=== PATIENT | male | born 1970 | race American Indian/Alaskan Native ===

== ENCOUNTER 2017-02-25 06:12 | Day surgery (SDC) | payer MEDICAID ==
[2017-02-15 13:57] VITALS: BMI 38.6
[2017-02-25 07:16] VITALS: RESP 18; TEMP 97.7
[2017-02-25] MEDS ORDERED: Propofol 10 mg/ml Inj (20 ML) ONE (08:00)
[2017-02-25] MEDS ORDERED: Sodium Chloride 0.9% 1,000 ML IV SCH (09:00)
[2017-02-25] MEDS ORDERED: Etomidate 40 MG/20 ML ML IV ONE (09:07)
[2017-02-25] MEDS ORDERED: Midazolam 2 MG/2 ML VIAL ONE (09:08)
[2017-02-25 09:25] VITALS: O2SAT 98
[2017-02-25 09:47] VITALS: BP 126/75; PULSE 75
== END 2017-02-25 10:22 | disposition home or self-care (01) ==
LOC: ENDO 06:12
PROVIDERS: ATTEND Internal Medicine Gastroenterology
DX: D12.3 Benign neoplasm of transverse colon (principal); D12.4 Benign neoplasm of descending colon; D12.5 Benign neoplasm of sigmoid colon; K62.1 Rectal polyp; K64.1 Second degree hemorrhoids; K59.00 Constipation, unspecified
CPT/HCPCS: 45380; 45385; 82948; 88305; J2704; J2765; J7040 ×2